=== PATIENT | male | born 1935 | race African-American/Black ===

== ENCOUNTER 2017-12-08 12:19 | Emergency (ER) | payer MEDICARE, MEDICAID ==
[~2017-12-08] VITALS: Ht 121.9 cm; Wt 68.0 kg
--- NOTE | 2017-12-08 12:34 | Emergency Room Report ---
History of Present Illness General Chief Complaint: Abdominal Pain Source: Patient, Medical Record, EMS Present Illness HPI The patient is an 82-year-old male with a prior history of stroke, MA, hyperlipidemia, bilat [id number]-[id number] of amputation, hypertension, diabetes [facility] for stated abdominal pain. The patient understands questioning but is unable to provide appropriate answers. This is normal per EMS. Pain is localized to the mid chest and mid upper abdomen. Unsure of onset. No known provoking or relieving factors. Denies other symptoms including shortness of breath, fever, chills, weakness Allergies: Coded Allergies: PENICILLINS (Verified Allergy, Unknown, 12/08/17) Patient History Past Medical History: see triage record, DM, HTN, MA, CAD, CVA/TIA Pertinent Family History: none Reviewed Nursing Documentation: PMH: Agreed, PSxH: Agreed Nursing Documentation-PMH Hx Hypertension: Yes Review of Systems All Other Systems: negative except mentioned in HPI Physical Exam Vital Signs Date Time Temp Pulse Resp B/P (MAP) Pulse Ox O2 Delivery O2 Flow Rate FiO2 12/08/17 12:15 98.8 94 16 122/62 97 Room Air Sp02 EP Interpretation: reviewed, normal General Appearance: no apparent distress, alert, GCS 15, non-toxic Head: normocephalic, atraumatic Eyes: bilateral eye normal inspection, bilateral eye PERRL ENT: no angioedema, uvula midline, moist mucus membranes Neck: full range of motion, supple/symm/no masses Respiratory: chest non-tender, lungs clear, normal breath sounds, speaking full sentences Cardiovascular #1: regular rate, rhythm, no edema Gastrointestinal: non tender, soft, no guarding, no hernia Genitourinary: normal inspection, no CVA tenderness Musculoskeletal: other - bilat Above knee amputations Neurologic: alert, responsive, sensory intact Psychiatric: judgement/insight normal, memory normal, mood/affect normal Skin: normal color, no rash, warm/dry, well hydrated Medical Decision Making PA Attestation Dr. Pyle is my supervising physician. Patient management was discussed with my supervising physician Diagnostic Impression: Primary Impression: UTI (urinary tract infection) Qualified Codes: N30.01 - Acute cystitis with hematuria Additional Impression: GERD (gastroesophageal reflux disease) Qualified Codes: K21.9 - Gastro-esophageal reflux disease without esophagitis ER Course The patient is an 82-year-old male with a prior history of stroke, MA, hyperlipidemia, bilat hfcae-zjc-shta of amputation, hypertension, diabetes [facility] for stated abdominal pain Differential diagnoses considered include but not limited to gastritis, pancreatitis, appendicitis, UTI, SBO, among others Physical exam: Afebrile. NAD Abdomen is soft. Nontender. Normal bowel sounds No CVA tenderness RRR Lungs CTA bilat Bilateral above-knee amputation No leukocytosis CMP unremarkable Cardiac enzymes unremarkable UA: consistent with UTI The patient is treated for UTI with IV Rocephin and given GI cocktail for GERD. He states he is feeling better The patient's is at bedside. He will be discharged home with the ER precautions. is accompanying him. Prescriptions for Keflex and Pepcid provided Laboratory Tests Test 12/08/17 14:45 White Blood Count 10.7 K/UL (4.8-10.8) Red Blood Count 4.81 M/UL (4.70-6.10) Hemoglobin 13.6 G/DL (14.2-18.0) L Hematocrit 42.9 % (42.0-52.0) Mean Corpuscular Volume 89 FL (80-99) Mean Corpuscular Hemoglobin 28.2 PG (27.0-31.0) Mean Corpuscular Hemoglobin Concent 31.7 G/DL (32.0-36.0) L Red Cell Distribution Width 12.9 % (11.6-14.8) Platelet Count 392 K/UL (150-450) Mean Platelet Volume 9.4 FL (6.5-10.1) Neutrophils (%) (Auto) 65.3 % (45.0-75.0) Lymphocytes (%) (Auto) 22.2 % (20.0-45.0) Monocytes (%) (Auto) 9.0 % (1.0-10.0) Eosinophils (%) (Auto) 2.0 % (0.0-3.0) Basophils (%) (Auto) 1.5 % (0.0-2.0) Prothrombin Time 10.7 SEC (9.30-11.50) Prothrombin Time INR 1.0 (0.9-1.1) PTT 28 SEC (23-33) Urine Color Yellow Urine Appearance Turbid Urine pH 5 (4.5-8.0) Urine Specific [place] 1.020 (1.005-1.035) Urine Protein 2+ (NEGATIVE) H Urine Glucose (UA) 3+ (NEGATIVE) H Urine Ketones 1+ (NEGATIVE) H Urine Occult Blood 5+ (NEGATIVE) H Urine Nitrite Negative (NEGATIVE) Urine Bilirubin Negative (NEGATIVE) Urine Urobilinogen 1 MG/DL (0.0-1.0) H Urine Leukocyte Esterase 2+ (NEGATIVE) H Urine RBC 60-80 /HPF (0 - 0) H Urine WBC 10-15 /HPF (0 - 0) H Urine Squamous Epithelial Cells Few /LPF (NONE/OCC) Urine Bacteria Many /HPF (NONE) H Sodium Level 136 MMOL/L (136-145) Potassium Level 4.7 MMOL/L (3.5-5.1) Chloride Level 99 MMOL/L (98-107) Carbon Dioxide Level 26 MMOL/L (21-32) Anion Gap 11 mmol/L (5-15) Blood Urea Nitrogen 13 mg/dL (7-18) Creatinine 1.0 MG/DL (0.55-1.30) Estimate Glomerular Filtration Rate mL/min (>60) Glucose Level 172 MG/DL (74-106) H Lactic Acid Level 1.40 mmol/L (0.66-2.22) Calcium Level 9.2 MG/DL (8.5-10.1) Total Bilirubin 0.4 MG/DL (0.2-1.0) Aspartate Amino Transferase (AST) 27 U/L (15-37) Alanine Aminotransferase (ALT) 32 U/L (12-78) Alkaline Phosphatase 56 U/L (46-116) Creatine Kinase MB 1.1 NG/ML (0.0-3.6) Troponin I 0.000 ng/mL (0.000-0.056) Total Protein 8.7 G/DL (6.4-8.2) H Albumin 3.0 G/DL (3.4-5.0) L Globulin 5.7 g/dL Albumin/Globulin Ratio 0.5 (1.0-2.7) L Lipase 85 U/L (73-393) Lab Results Impression No leukocytosis CMP unremarkable Cardiac enzymes unremarkable UA: consistent with UTI EKG Diagnostic Results EP Interpretation: 113 Rate: tachycardiac Rhythm: other - sinus tachycardia with RBBB ST Segments: no acute changes ASA given to the pt in ED: No PA Scribe Text sinus tachycardia with RBBB EKG was reviewed and read with my supervising physician. No acute ST segment changes are seen. Findings as above Chest X-Ray Diagnostic Results Chest X-Ray Diagnostic Results : Chest X-Ray Ordered: Yes # of Views/Limited/Complete: 1 View Indication: Other - abd pain EP Interpretation: Yes PA Xray: Interpretation reviewed, by supervising MD, and agrees with findings. Interpretation: no consolidation, no effusion, no pneumothorax Impression: No acute disease Electronically Signed by: Clifford Stokes PA-C CT/MRI/US Diagnostic Results CT/MRI/US Diagnostic Results : Imaging Test Ordered: CT abd/pelvis Impression Fecal impaction within the rectum. Right inguinal hernia containing fat. Status post vascular surgery including Aortobifemoral bypass graft. 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 Femoral to femoral gortex bypass graft noted. Fatty liver Renal cysts Mild fibrosis at the right lung base. Normal appendix Diverticulosis of the colon. Degenerative changes of the lumbar spine and thoracic spine. Last Vital Signs Date Time Temp Pulse Resp B/P (MAP) Pulse Ox O2 Delivery O2 Flow Rate FiO2 12/08/17 12:15 98.8 94 16 122/62 97 Room Air Status: improved Disposition: HOME, SELF-CARE Condition: Improved Scripts Cephalexin* (KEFLEX*) 500 Mg Capsule 500 MG ORAL EVERY 12 HOURS, #14 CAP 0 Refills Prov: TERZIAN,CLIFFORD P.A. 12/08/17 Famotidine (PEPCID) 20 Mg Tablet 20 MG ORAL DAILY, #7 TAB 0 Refills Prov: LULZIANCLIFFORD P.A. 12/08/17 TERZIAN,CLIFFORD P.A. Dec 08, 2017 12:34
[2017-12-08 13:30] VITALS: BP 126/57
--- NOTE | 2017-12-08 14:33 | Diagnostic Imaging Report ---
Indication: Dyspnea Comparison: None A single view chest radiograph was obtained. Findings: No definite infiltrate identified. Heart size is normal. Bones are osteopenic. [place] foreign bodies projected over the chest. IMPRESSION: No acute disease
[2017-12-08 14:57] LABS: BASOPHILS % (AUTO) 1.5 % (0.0-2.0); HEMATOCRIT 42.9 % (42.0-52.0); HEMOGLOBIN 13.6 G/DL (14.2-18.0); LYMPHOCYTES % (AUTO) 22.2 % (20.0-45.0); MEAN CORPUSCULAR VOLUME 89 FL (80-99); NEUTROPHILS % (AUTO) 65.3 % (45.0-75.0); PLATELET COUNT 392 K/UL (150-450); RED BLOOD COUNT 4.81 M/UL (4.70-6.10); RED CELL DISTRIBUTION WIDTH 12.9 % (11.6-14.8); WHITE BLOOD COUNT 10.7 K/UL (4.8-10.8)
[2017-12-08 14:58] LABS: APPEARANCE,URINE TURBID; BILIRUBIN, URINE NEGATIVE (NEGATIVE); GLUCOSE, URINE (UA) 3+ (NEGATIVE); KETONES,URINE 1+ (NEGATIVE); LEUKOCYTE ESTERASE ,URINE 2+ (NEGATIVE); NITRITE,URINE NEGATIVE (NEGATIVE); PH,URINE 5 (4.5-8.0); PROTEIN,URINE 2+ (NEGATIVE); UROBILINOGEN,URINE 1 MG/DL (0.0-1.0)
[2017-12-08 15:01] LABS: COLOR,URINE YELLOW
[2017-12-08 15:30] VITALS: BP 98/67
[2017-12-08] MEDS ORDERED: cefTRIAXone 1 GM in NS 55 ML IVPB ONE (16:00)
[2017-12-08 16:01] LABS: ANION GAP 11 mmol/L (5-15); BLOOD UREA NITROGEN 13 mg/dL (7-18); CALCIUM 9.2 MG/DL (8.5-10.1); CARBON DIOXIDE 26 MMOL/L (21-32); CHLORIDE 99 MMOL/L (98-107); POTASSIUM 4.7 MMOL/L (3.5-5.1); SODIUM 136 MMOL/L (136-145)
[2017-12-08] MEDS ORDERED: Dicyclomine HCl 10mg/5ml oral soln ORAL ONE (16:15)
[2017-12-08] MEDS ORDERED: Mylanta II UD 30ml ORAL ONE (16:15)
[2017-12-08] MEDS ORDERED: Lidocaine 2% Visc 15ml soln ORAL ONE (16:15)
[2017-12-08 16:16] LABS: ALANINE AMINOTRANSFERASE 32 U/L (12-78); ALBUMIN/GLOBULIN RATIO 0.5 (1.0-2.7); ALKALINE PHOSPHATASE 56 U/L (46-116); ASPARTATE AMINO TRANSFERASE 27 U/L (15-37); BILIRUBIN,TOTAL 0.4 MG/DL (0.2-1.0); CKMB 1.1 NG/ML (0.0-3.6)
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
[2017-12-08 17:30] VITALS: BP 142/83
[2017-12-08] MEDS ORDERED: CEPHALEXIN500 MG ORAL (19:45)
[2017-12-08] MEDS ORDERED: PEPCID20 MG ORAL (19:45)
[2017-12-08 20:08] VITALS: BP 118/70
--- NOTE | 2017-12-09 15:51 | Cardiology Report ---
APPROVED REPORT EKG Measurement Heart [id number] SD [id number] Sinus rhythm Otherwise normal ECG
== END 2017-12-08 20:08 | disposition home or self-care (01) ==
LOC: EDBD 12:19 → EMR 12:51
DX: N39.0 Urinary tract infection, site not specified (principal); K21.9 Gastro-esophageal reflux disease without esophagitis; I10 Essential (primary) hypertension; E11.9 Type 2 diabetes mellitus without complications; I25.2 Old myocardial infarction; I25.10 Atherosclerotic heart disease of native coronary artery without angina pectoris; Z86.73 Personal history of transient ischemic attack (TIA), and cerebral infarction without residual deficits; Z88.0 Allergy status to penicillin; E78.5 Hyperlipidemia, unspecified
CPT/HCPCS: 36415; 71045; 74177; 80053; 81003; 82553; 83605; 83690; 84484; 85025; 85610; 85730; 87086; 87181; 93005; 96361; 96365; 99284; J0696; Q9967